=== PATIENT | male | born 1980 | race Hispanic/Latino ===

== ENCOUNTER 2020-05-25 09:22 | Emergency (ER) | payer OTHER ==
[~2020-05-25] VITALS: Ht 162.6 cm; Wt 68.0 kg
[2020-05-25] MEDS ORDERED: KEFLEX500 MG PO (10:25)
[2020-05-25 10:28] VITALS: BP 133/79
== END 2020-05-25 10:40 | disposition home or self-care (01) | DRG 605 ==
LOC: ED 09:22
DX: S81.011A Laceration without foreign body, right knee, initial encounter (principal); W25.XXXA Contact with sharp glass, initial encounter; Y93.89 Activity, other specified; Y92.89 Other specified places as the place of occurrence of the external cause; Y99.0 Civilian activity done for income or pay